=== PATIENT | male | born 1950 | race Two or more races ===

== ENCOUNTER → 2022-08-10 | Outpatient (CLI) | payer OTHER ==
[2022-08-10 07:34] LABS: Urine Bacteria NONE SEEN /hpf (None Seen); Urine Blood Negative /uL (Negative); Urine Specific Gravity 1.015 (1.001-1.035); Urine WBC 1 /hpf (0 - 3)
[2022-08-10 07:43] LABS: Basophils # (auto) 0 10 ^3/uL (0-0.2); Basophils % (auto) 0.4 % (0.0-2.0); Eosinophils # (auto) 0.3 10 ^3/uL (0-0.8); Eosinophils % (auto) 3.6 % (0.0-7.0); Hematocrit 42.6 % (41.0-53.0); Hemoglobin 13.9 g/dL (13.5-17.5); Lymphocytes # (auto) 1.8 10 ^3/uL (0.4-5.4); Lymphocytes % (auto) 20.2 % (10.0-50.0); Mean Corpuscular Hemoglobin 27.8 pg (28.0-32.0); Mean Corpuscular Hgb Conc. 32.7 g/dL (32.0-36.0); Mean Corpuscular Volume 84.9 fL (80.0-100.0); Monocytes # (auto) 0.7 10 ^3/uL (0-1.3); Monocytes % (auto) 8.1 % (0.0-12.0); Neutrophils # (auto) 6.1 10 ^3/uL (1.6-8.6); Neutrophils % (auto) 67.7 % (37.0-80.0); Red Blood Cells 5.01 10^6/uL (4.5-5.90); Red Cell Distribution Width 14.6 % (11.8-14.3)
[2022-08-10 08:15] LABS: Potassium 4.7 mmol/L (3.5-5.1)
[2022-08-10 08:24] LABS: Albumin 3.9 g/dL (3.4-5.0); BUN/Creatinine Ratio 12.5 (10.0-20.0); Bilirubin, Total 0.3 mg/dL (0.2-1.0); Calcium 9.5 mg/dL (8.5-10.1); Total Protein 8.2 g/dL (6.4-8.2)
== END | disposition home or self-care (01) ==
LOC: LAB 06:51
PROVIDERS: ATTEND Internal Medicine
DX: Z12.11 Encounter for screening for malignant neoplasm of colon (principal); E11.69 Type 2 diabetes mellitus with other specified complication; E78.00 Pure hypercholesterolemia, unspecified; R68.89 Other general symptoms and signs
CPT/HCPCS: 36415; 80053; 80061; 81001; 82043; 82270; 82570; 83036; 85025

== ENCOUNTER → 2023-06-28 | Outpatient (CLI) | payer OTHER ==
[2023-06-28 07:24] LABS: Basophils # (auto) 0.1 10 ^3/uL (0-0.2); Basophils % (auto) 0.6 % (0.0-2.0); Eosinophils # (auto) 0.4 10 ^3/uL (0-0.8); Hematocrit 38.4 % (41.0-53.0); Hemoglobin 12.4 g/dL (13.5-17.5); Lymphocytes # (auto) 2.6 10 ^3/uL (0.4-5.4); Lymphocytes % (auto) 32.4 % (10.0-50.0); Mean Corpuscular Hemoglobin 27.3 pg (28.0-32.0); Mean Corpuscular Hgb Conc. 32.3 g/dL (32.0-36.0); Mean Corpuscular Volume 84.6 fL (80.0-100.0); Monocytes # (auto) 0.6 10 ^3/uL (0-1.3); Monocytes % (auto) 7.6 % (0.0-12.0); Neutrophils # (auto) 4.3 10 ^3/uL (1.6-8.6); Neutrophils % (auto) 54.4 % (37.0-80.0); Red Blood Cells 4.54 10^6/uL (4.5-5.90); Red Cell Distribution Width 15.7 % (11.8-14.3); White Blood Cell 7.9 10^3/uL (4.4-10.8)
[2023-06-28 07:25] LABS: Urine Bacteria NONE SEEN /hpf (None Seen); Urine Blood Negative /uL (Negative); Urine Clarity Clear (Clear); Urine Color Colorless (Yellow); Urine Protein, UAD TRACE (Negative); Urine Specific Gravity 1.012 (1.001-1.035); Urine Urobilinogen Normal (Negative); Urine WBC 1 /hpf (0 - 3); Urine pH 5.5 (5.0-8.0)
[2023-06-28 07:38] LABS: Alanine Aminotransferase 31 U/L (7-40); Albumin 4.3 g/dL (3.2-4.8); Alkaline Phosphatase 77 U/L (46-116); Anion Gap 8 (5-15); Aspartate Aminotransferase 14 U/L (13-40); BUN/Creatinine Ratio 10.8 (10.0-20.0); Blood Urea Nitrogen 11 mg/dL (9-23); Calcium 9.8 mg/dL (8.5-10.1); Carbon Dioxide 27 mmol/L (20-30); Chloride 105 mmol/L (98-107); Cholesterol 103 mg/dL (< 200); Glucose 106 mg/dL (74-106); HDL Cholesterol 41 mg/dL (40-59); LDL Cholesterol 50 mg/dL (< 100); Potassium 4.2 mmol/L (3.5-5.1); Sodium 140 mmol/L (136-145); Triglycerides 86 mg/dL (< 150)
[2023-06-28 07:39] LABS: Bilirubin, Total 0.4 mg/dL (0.2-1.0); Total Protein 8.1 g/dL (5.7-8.2)
[2023-06-28 07:47] LABS: Creatinine, Urine 62.44 mg/dL (30.0-125.0)
== END | disposition home or self-care (01) ==
LOC: LAB 06:28
PROVIDERS: ATTEND Internal Medicine
DX: Z12.11 Encounter for screening for malignant neoplasm of colon (principal); E78.00 Pure hypercholesterolemia, unspecified; E11.69 Type 2 diabetes mellitus with other specified complication; I42.9 Cardiomyopathy, unspecified
CPT/HCPCS: 36415; 80053; 80061; 81001; 82043; 82270; 82570; 83036; 85025

== ENCOUNTER → 2024-03-11 | Outpatient (CLI) | payer OTHER ==
[2024-03-11 07:24] LABS: Urine Bacteria None Seen /hpf (None Seen)
[2024-03-11 07:58] LABS: Basophils # (auto) 0.1 10 ^3/uL (0-0.2); Basophils % (auto) 0.8 % (0.0-2.0); Eosinophils # (auto) 0.5 10 ^3/uL (0-0.8); Eosinophils % (auto) 5.7 % (0.0-7.0); Hematocrit 43.3 % (41.0-53.0); Hemoglobin 14.5 g/dL (13.5-17.5); Lymphocytes # (auto) 2.7 10 ^3/uL (0.4-5.4); Lymphocytes % (auto) 30.7 % (10.0-50.0); Mean Corpuscular Hemoglobin 28.3 pg (28.0-32.0); Mean Corpuscular Hgb Conc. 33.5 g/dL (32.0-36.0); Mean Corpuscular Volume 84.3 fL (80.0-100.0); Monocytes # (auto) 0.6 10 ^3/uL (0-1.3); Monocytes % (auto) 6.7 % (0.0-12.0); Neutrophils % (auto) 56.1 % (37.0-80.0); Platelet Count (auto) 232 10^3/uL (140-450); Red Blood Cells 5.14 10^6/uL (4.5-5.90); Red Cell Distribution Width 14.8 % (11.8-14.3); White Blood Cell 8.9 10^3/uL (4.4-10.8)
[2024-03-11 08:13] LABS: Alanine Aminotransferase 32 U/L (7-40); Alkaline Phosphatase 79 U/L (46-116); Anion Gap 10 (5-15); BUN/Creatinine Ratio 9.9 (10.0-20.0); Blood Urea Nitrogen 11 mg/dL (9-23); Calcium 10.3 mg/dL (8.7-10.4); Carbon Dioxide 26 mmol/L (20-31); Chloride 103 mmol/L (98-107); LDL Cholesterol 59 mg/dL (< 100); Potassium 3.8 mmol/L (3.5-5.1); Sodium 139 mmol/L (136-145); Triglycerides 123 mg/dL (< 150)
[2024-03-11 08:14] LABS: Albumin 4.5 g/dL (3.2-4.8); Aspartate Aminotransferase 16 U/L (13-40); Bilirubin, Total 0.4 mg/dL (0.2-1.0); Cholesterol 116 mg/dL (< 200); HDL Cholesterol 42 mg/dL (40-59)
[2024-03-11 08:20] LABS: Glucose 154 mg/dL (74-106)
[2024-03-11 08:42] LABS: Urine Blood Negative /uL (Negative); Urine Clarity Clear (Clear); Urine Color Light-Yellow (Yellow); Urine Protein, UAD 1+ (Negative); Urine Specific Gravity 1.013 (1.001-1.035); Urine Urobilinogen Normal (Negative); Urine WBC 1 /hpf (0 - 3)
== END | disposition home or self-care (01) ==
LOC: LAB 07:07
PROVIDERS: ATTEND Internal Medicine
DX: Z12.11 Encounter for screening for malignant neoplasm of colon (principal); N42.9 Disorder of prostate, unspecified; E78.00 Pure hypercholesterolemia, unspecified; E11.69 Type 2 diabetes mellitus with other specified complication
CPT/HCPCS: 36415; 80053; 80061; 81001; 82270; 83036; 84153; 85025

== ENCOUNTER 2024-11-04 06:58 | Outpatient (CLI) | payer OTHER ==
[2024-11-04 08:00] LABS: Hematocrit 44.0 % (41.0-53.0); Hemoglobin 14.6 g/dL (13.5-17.5); Mean Corpuscular Hemoglobin 28.4 pg (28.0-32.0); Mean Corpuscular Volume 85.2 fL (80.0-100.0); Nucleated Red Blood Cells % 0.1 %
[2024-11-04 08:38] LABS: Albumin 4.8 g/dL (3.2-4.8); Alkaline Phosphatase 71 U/L (46-116); Anion Gap 11 (5-15); BUN/Creatinine Ratio 13.2 (10.0-20.0); Bilirubin, Total 0.4 mg/dL (0.2-1.0); Blood Urea Nitrogen 15 mg/dL (9-23); Carbon Dioxide 25 mmol/L (20-31); Chloride 105 mmol/L (98-107); Cholesterol 103 mg/dL (< 200); Potassium 4.4 mmol/L (3.5-5.1); Sodium 141 mmol/L (136-145); Total Protein 7.8 g/dL (5.7-8.2); Triglycerides 93 mg/dL (< 150)
[2024-11-04 08:39] LABS: Alanine Aminotransferase 59 U/L (7-40); Calcium 10.5 mg/dL (8.7-10.4); Glucose 121 mg/dL (74-106); HDL Cholesterol 40 mg/dL (40-59)
[2024-11-04 09:00] LABS: Microalb/Creat Ratio, Urine 50.0
== END 2024-11-04 17:00 | disposition home or self-care (01) ==
LOC: LAB 06:58
PROVIDERS: ATTEND Internal Medicine
DX: N42.9 Disorder of prostate, unspecified (principal); E11.69 Type 2 diabetes mellitus with other specified complication; E78.00 Pure hypercholesterolemia, unspecified; R68.89 Other general symptoms and signs; Z12.11 Encounter for screening for malignant neoplasm of colon
CPT/HCPCS: 36415; 80053; 80061; 82043; 82270; 82570; 83036; 84153; 85025